=== PATIENT | male | born 1995 | race Caucasian/White ===

== ENCOUNTER 2018-07-18 12:22 | Emergency (ER) | payer SELFPAY ==
[~2018-07-18] VITALS: Ht 160 cm; Wt 63.9 kg
[2018-07-18] MEDS ORDERED: PENI500T PO (13:42)
[2018-07-18] MEDS ORDERED: IBUP-1022 PO (13:42)
[2018-07-18 13:50] VITALS: BP 114/75
== END 2018-07-18 13:52 | disposition home or self-care (01) ==
LOC: M ED 12:22
DX: K04.7 Periapical abscess without sinus (principal); F17.200 Nicotine dependence, unspecified, uncomplicated